=== PATIENT | male | born 1990 | race Two or more races ===

== ENCOUNTER 2022-08-26 20:45 | Emergency (ER) | payer MEDICAID, OTHER ==
[~2022-08-26] VITALS: Ht 167.6 cm; Wt 63.5 kg
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
[2022-08-26 22:05] LABS: BASOPHILS # (AUTO) 0.1 K/uL (0.0-0.2); BASOPHILS % (AUTO) 0.5 % (0.0-2.0); EOSINOPHILS % (AUTO) 2.9 % (0.0-6.0); HEMATOCRIT 52 % (39-51); HEMOGLOBIN 17.1 g/dL (13.5-17.5); LYMPHOCYTES # (AUTO) 1.8 K/uL (0.8-4.8); LYMPHOCYTES % (AUTO) 13.7 % (20.0-44.0); MEAN CORPUSCULAR HGB CONC 33 g/dl (31.0-36.0); MEAN CORPUSCULAR VOLUME 101 fL (80-96); MONOCYTES # (AUTO) 0.6 K/uL (0.1-1.30); MONOCYTES % (AUTO) 4.2 % (2.0-12.0); NEUTROPHILS # (AUTO) 10.5 K/uL (1.8-8.9); NEUTROPHILS % (AUTO) 78.7 % (43.0-81.0); PLATELET COUNT (AUTO) 491 K/uL (150-450); RED BLOOD CELL COUNT(AUTO) 5.11 MIL/uL (4.5-6.0); WHITE BLOOD COUNT (AUTO) 13.4 K/uL (4.3-11.0)
[2022-08-26 22:13] LABS: CALCIUM, SERUM 9.1 mg/dL (8.5-10.1); CREATININE 0.9 mg/dL (0.6-1.3); POTASSIUM 4.1 mmol/L (3.5-5.1)
[2022-08-26 22:19] LABS: ALBUMIN 4.6 g/dL (3.4-5.0); BILIRUBIN,TOTAL 0.2 mg/dL (0.2-1.0); TOTAL PROTEIN, SERUM 8.8 g/dL (6.4-8.2)
--- NOTE | 2022-08-26 23:03 | NUR ---
Patient discharged to home in stable condition. Written and verbal after care instructions given. Patient verbalizes understanding of instruction.
[2022-08-26 23:04] VITALS: BP 120/70
== END 2022-08-26 23:04 | disposition home or self-care (01) ==
LOC: ER 20:51
DX: S00.03XA Contusion of scalp, initial encounter (principal); F10.129 Alcohol abuse with intoxication, unspecified; D75.89 Other specified diseases of blood and blood-forming organs; D75.839 Thrombocytosis, unspecified; D72.829 Elevated white blood cell count, unspecified; F17.210 Nicotine dependence, cigarettes, uncomplicated; Y04.2XXA Assault by strike against or bumped into by another person, initial encounter; Y93.89 Activity, other specified; Y92.89 Other specified places as the place of occurrence of the external cause; Y99.8 Other external cause status; Y90.9 Presence of alcohol in blood, level not specified
CPT/HCPCS: 36415; 70450-TC; 72125-TC; 80053-TC; 82962-TC; 85025-TC

== ENCOUNTER 2022-10-04 01:29 | Emergency (ER) | payer MEDICAID ==
[~2022-10-04] VITALS: Ht 165.1 cm; Wt 65.8 kg
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
[2022-10-04] MEDS ORDERED: LIDOCAINE 1%-EPI 1:100,000 20 ML VIAL ONE (02:19)
--- NOTE | 2022-10-04 02:21 | NUR ---
nursing administrator AT BED SIDE FOR WOUND IRRIGATION
--- NOTE | 2022-10-04 02:51 | NUR ---
[employer] AT BED SIDE
--- NOTE | 2022-10-04 03:52 | NUR ---
Patient does not wish to proceed with medical care recommended by Dr. Faith. Patient given information related to possible complications, up to and including , which could occur as a result of leaving the hospital at this time. Patient verbalizes understanding of risks involved due to leaving against medical advice. Patient has signed AMA form.
[2022-10-04 03:53] VITALS: BP 111/78; TEMP 97.8
== END 2022-10-04 03:53 | disposition left against medical advice (07) ==
LOC: ER 01:32
DX: S01.01XA Laceration without foreign body of scalp, initial encounter (principal); F17.200 Nicotine dependence, unspecified, uncomplicated; Z60.2 Problems related to living alone; Y04.0XXA Assault by unarmed brawl or fight, initial encounter; Y93.89 Activity, other specified; Y92.89 Other specified places as the place of occurrence of the external cause; Y99.8 Other external cause status
CPT/HCPCS: 99284; 70450; 12002; J3490

== ENCOUNTER 2022-10-16 18:59 | Emergency (ER) | payer MEDICAID ==
[~2022-10-16] VITALS: Ht 167.6 cm; Wt 59.0 kg
[2022-10-16 20:03] VITALS: BP 114/74; TEMP 98.1
--- NOTE | 2022-10-16 20:03 | NUR ---
TYREL FROM HOME FOR 4 DANIELLE REMOVAL TO [facility]
--- NOTE | 2022-10-16 20:18 | NUR ---
DR KEYA CARDOZA AT PT'S BEDSIDE FOR EVAL
--- NOTE | 2022-10-16 20:32 | NUR ---
Patient discharged to home in stable condition. Written and verbal after care instructions given. Patient verbalizes understanding of instruction.
--- NOTE | 2022-10-16 20:32 | NUR ---
SUTURES REMOVED BY DR LAURA
== END 2022-10-16 20:33 | disposition home or self-care (01) ==
LOC: ER 19:07
DX: Z48.02 Encounter for removal of sutures (principal); F17.200 Nicotine dependence, unspecified, uncomplicated; Z60.2 Problems related to living alone